=== PATIENT | male | born 1945 | race Caucasian/White ===

== ENCOUNTER 2016-12-05 10:43 | Emergency (ER) | payer OTHER ==
[~2016-12-05] VITALS: Ht 185.4 cm; Wt 160.0 kg
[~2016-12-05 10:43] MED LIST: AMLODIPINE BESYL5 MG PO; ASPIR 8181 M1 PO; ASPIR-LOW81 MG PO; ATORVASTATIN CA40 MG PO; BACIGUENT28.4 GM PO; BUPROPION XL150 MG PO; DILAUDID2 MG PO; DURAGESIC50 MCG TD; FENOFIBRATE145 M1 PO; FLOMAX0.4 MG PO; FLORASTOR250 MG PO; FUROSEMIDE20 MG PO; GLIPIZIDE XL10 MG PO; GLIPIZIDE5 MG PO; HYDROCHLOROTH12.5 M3 PO; LEVETIRACETAM500 MG PO; LEVOFLOXACIN500 MG PO; LOSARTAN POTAS100 MG PO; METOPROLOL SUC100 MG PO; NEXIUM40 MG PO; NORVASC5 MG PO; OXECTA5 MG PO; PAXIL40 MG PO; PRADAXA150 MG PO; PROAIR HFA8.5 GM IH; TAMSULOSIN HCL0.4 MG PO; TRAMADOL HCL50 MG PO; XANAX0.5 MG PO
[2016-12-05 11:45] LABS: HEMATOCRIT 45.9 % (38.0-50.0); MCH 30.7 PG (29.0-34.0); MCV 90.4 FL (86-99); MEAN PLAT.VOLUME 11.4 uM^3 (9.0-12.4); PLATELET COUNT 156 K/uL (156-360); RBC DIS.WIDTH-CV 14.2 % (11.8-14.6); RBC DIS.WIDTH-SD 46.2 % (39-53); RED BLOOD COUNT 5.08 M/uL (4.00-5.50); WHITE BLOOD COUNT 6.2 K/uL (4.1-10.2)
[2016-12-05 12:06] LABS: CHLORIDE 109 mEq/L (99-109); POTASSIUM 5.5 mEq/L (3.7-5.4); SODIUM 140 mEq/L (136-147)
[2016-12-05 12:08] LABS: GLUCOSE 77 mg/dL (70-99)
[2016-12-05 12:09] LABS: ANION GAP 11 MEQ/L (2-14)
[2016-12-05 12:11] LABS: GFR ESTIMATE (CALCULATED) > 59 mL/min/
[2016-12-05 12:12] LABS: UREA NITROGEN (BUN) 14 mg/dL (9-23)
[2016-12-05 13:56] LABS: ADD MIUA? NO; BILIRUBIN NEGATIVE; BLOOD NEGATIVE; COLOR YELLOW ((YELLOW)); GLUCOSE (STRIP) NEGATIVE; KETONES NEGATIVE; LEUKOCYTES NEGATIVE; NITRITE NEGATIVE; PH, URINE 5.5 (5-8); PROTEIN (STRIP) NEGATIVE; SPECIFIC GRAVITY 1.014 (1.000-1.030); UCUL ADDED? NO; UROBILINOGEN 0.2 MG/DL (0.2-1.0)
[2016-12-05 14:39] VITALS: BP 136/93
== END 2016-12-05 14:40 | disposition home or self-care (01) ==
LOC: EME → EDBD 10:43 → EME 14:40
PROVIDERS: Emergency Medicine
DX: R56.9 Unspecified convulsions (principal); I10 Essential (primary) hypertension; E11.9 Type 2 diabetes mellitus without complications; I69.351 Hemiplegia and hemiparesis following cerebral infarction affecting right dominant side; E78.5 Hyperlipidemia, unspecified; E66.9 Obesity, unspecified; Z68.42 Body mass index [BMI] 45.0-49.9, adult; Z79.82 Long term (current) use of aspirin; Z87.891 Personal history of nicotine dependence
CPT/HCPCS: 70450; 80048; 81003; 85027; 93005; J1953; J2250; J7050

== ENCOUNTER 2017-04-11 17:25 | Emergency (ER) | payer OTHER ==
[~2017-04-11] VITALS: Ht 190.5 cm; Wt 164.5 kg
[2017-04-11 18:39] LABS: EOSINOPHIL (%) 2.5 % (0-5); EOSINOPHIL COUNT 0.2 K/uL (0-0.3); HEMATOCRIT 46.9 % (38.0-50.0); IMMATURE GRANULOCYTE (%) 0.4 % (0.0-0.7); INSTRUMENT ABS NEUTROPHIL CT 4.2 K/uL; LYMPHOCYTE COUNT 1.6 K/uL (1.0-2.8); MCV 93.8 FL (86-99); MEAN PLAT.VOLUME 9.9 uM^3 (9.0-12.4); MONOCYTE (%) 10.6 % (3-12); MONOCYTE COUNT 0.7 K/uL (0-0.8); NEUTROPHIL (%) 62.9 % (45-76); NEUTROPHIL COUNT 4.2 K/uL (1.8-6.4); PLATELET COUNT 143 K/uL (156-360); RBC DIS.WIDTH-CV 14.4 % (11.8-14.6); WHITE BLOOD COUNT 6.7 K/uL (4.1-10.2)
[2017-04-11 18:52] LABS: CHLORIDE 105 mEq/L (99-109); POTASSIUM 4.4 mEq/L (3.7-5.4); SODIUM 134 mEq/L (136-147)
[2017-04-11 18:54] LABS: GLUCOSE 124 mg/dL (70-99)
[2017-04-11 18:55] LABS: ANION GAP 4 MEQ/L (2-14)
[2017-04-11 18:57] LABS: ALKALINE PHOSPHATASE 79 IU/L (3-129)
[2017-04-11 18:58] LABS: GFR ESTIMATE (CALCULATED) > 59 mL/min/
[2017-04-11 18:59] LABS: UREA NITROGEN (BUN) 16 mg/dL (9-23)
[2017-04-11 19:01] LABS: LIPASE 19 U/L (1.0-51.0)
[2017-04-11 19:14] LABS: ADD MIUA? NO; BILIRUBIN NEGATIVE; BLOOD NEGATIVE; COLOR YELLOW ((YELLOW)); GLUCOSE (STRIP) NEGATIVE; KETONES NEGATIVE; LEUKOCYTES NEGATIVE; NITRITE NEGATIVE; PROTEIN (STRIP) NEGATIVE; SPECIFIC GRAVITY 1.018 (1.000-1.030); UCUL ADDED? NO; UROBILINOGEN 0.2 MG/DL (0.2-1.0)
[2017-04-11 22:02] VITALS: BP 123/82
== END 2017-04-11 22:05 | disposition home or self-care (01) ==
LOC: EME 17:25
PROVIDERS: Emergency Medicine
DX: R33.9 Retention of urine, unspecified (principal); R10.30 Lower abdominal pain, unspecified; Z87.891 Personal history of nicotine dependence; Z86.73 Personal history of transient ischemic attack (TIA), and cerebral infarction without residual deficits; I10 Essential (primary) hypertension; Z79.82 Long term (current) use of aspirin; E11.9 Type 2 diabetes mellitus without complications; Z79.84 Long term (current) use of oral hypoglycemic drugs; E78.5 Hyperlipidemia, unspecified
CPT/HCPCS: 74177; 80053; 81003; 83690; 85025; 99281; 99285; J2270; J2405

== ENCOUNTER 2017-04-24 02:32 | Emergency (ER) | payer OTHER ==
[~2017-04-24] VITALS: Ht 190.5 cm; Wt 165.5 kg
[2017-04-24 03:10] LABS: ADD MIUA? YES; BILIRUBIN NEGATIVE; BLOOD LARGE; COLOR YELLOW ((YELLOW)); GLUCOSE (STRIP) NEGATIVE; KETONES NEGATIVE; LEUKOCYTES LARGE; NITRITE NEGATIVE; PROTEIN (STRIP) 30; SPECIFIC GRAVITY 1.014 (1.000-1.030)
[2017-04-24 03:20] LABS: BACTERIA 2+ /HPF; EPITHELIAL CELLS NONE SEEN /HPF; MUCUS TRACE /LPF; RED BLOOD CELLS TNTC /HPF (0-5); UCUL ADDED? YES; WHITE BLOOD CELLS TNTC /HPF (0-5)
[2017-04-24] MEDS ORDERED: KEFLEX500 MG PO (03:26)
[2017-04-24 04:03] VITALS: BP 118/77
== END 2017-04-24 04:05 | disposition home or self-care (01) ==
LOC: EME 02:32
PROVIDERS: Emergency Medicine
DX: N39.0 Urinary tract infection, site not specified (principal); R33.9 Retention of urine, unspecified; N40.0 Benign prostatic hyperplasia without lower urinary tract symptoms; E11.9 Type 2 diabetes mellitus without complications; I10 Essential (primary) hypertension; E78.5 Hyperlipidemia, unspecified; Z86.73 Personal history of transient ischemic attack (TIA), and cerebral infarction without residual deficits; Z87.891 Personal history of nicotine dependence; Z79.84 Long term (current) use of oral hypoglycemic drugs
CPT/HCPCS: 81003; 87086; 99281; 99284

== ENCOUNTER → 2017-05-19 | Outpatient (CLI) | payer MEDICARE, OTHER ==
[~2017-05-19] MED LIST changes: +KEFLEX500 MG PO
== END | disposition home or self-care (01) ==
LOC: CDC 10:37
DX: N40.1 Benign prostatic hyperplasia with lower urinary tract symptoms (principal); R33.8 Other retention of urine; R94.31 Abnormal electrocardiogram [ECG] [EKG]
CPT/HCPCS: 93000

== ENCOUNTER 2017-07-21 14:12 | Inpatient (IN) | payer OTHER ==
[~2017-07-21] VITALS: Ht 182.9 cm; Wt 125.0 kg
[2017-07-21 15:13] LABS: CHLORIDE 100 mEq/L (99-109); POTASSIUM 4.2 mEq/L (3.7-5.4); SODIUM 134 mEq/L (136-147)
[2017-07-21 15:15] LABS: GLUCOSE 125 mg/dL (70-99)
[2017-07-21 15:17] LABS: ANION GAP 13 MEQ/L (2-14); TOTAL BILIRUBIN 1.2 mg/dL (0.0-1.0)
[2017-07-21 15:19] LABS: ALKALINE PHOSPHATASE 83 IU/L (3-129); GFR ESTIMATE (CALCULATED) 46 mL/min/
[2017-07-21 15:20] LABS: UREA NITROGEN (BUN) 17 mg/dL (9-23)
[2017-07-21 15:28] LABS: TROP-I INTERPRETATION NEGATIVE; TROPONIN-I < 0.01 ng/mL (0.0-0.30)
[2017-07-21 17:00] LABS: EOSINOPHIL (%) 0.7 % (0-5); EOSINOPHIL COUNT 0.1 K/uL (0-0.3); HEMATOCRIT 42.5 % (38.0-50.0); IMMATURE GRANULOCYTE (%) 0.6 % (0.0-0.7); IMMATURE GRANULOCYTE COUNT 0.1 K/uL; INSTRUMENT ABS NEUTROPHIL CT 6.6 K/uL; LYMPHOCYTE COUNT 1.6 K/uL (1.0-2.8); MCH 30.5 PG (29.0-34.0); MCHC 32.5 G/DL (30.0-36.0); MCV 93.8 FL (86-99); MEAN PLAT.VOLUME 11.1 uM^3 (9.0-12.4); MONOCYTE (%) 12.4 % (3-12); MONOCYTE COUNT 1.2 K/uL (0-0.8); NEUTROPHIL (%) 69.3 % (45-76); NEUTROPHIL COUNT 6.6 K/uL (1.8-6.4); PLATELET COUNT 198 K/uL (156-360); RBC DIS.WIDTH-CV 13.9 % (11.8-14.6); RBC DIS.WIDTH-SD 47.9 % (39-53); RED BLOOD COUNT 4.53 M/uL (4.00-5.50); WHITE BLOOD COUNT 9.6 K/uL (4.1-10.2)
[2017-07-21 19:59] LABS: ADD MIUA? YES; BILIRUBIN NEGATIVE; BLOOD MODERATE; COLOR AMBER ((YELLOW)); GLUCOSE (STRIP) NEGATIVE; KETONES NEGATIVE; LEUKOCYTES MODERATE; NITRITE NEGATIVE; PROTEIN (STRIP) 30; SPECIFIC GRAVITY 1.024 (1.000-1.030)
[2017-07-21 20:06] LABS: BACTERIA NONE SEEN /HPF; EPITHELIAL CELLS RARE /HPF; GRANULAR CASTS 0-5 /LPF; HYALINE CASTS 0-5 /LPF; MUCUS TRACE /LPF; RED BLOOD CELLS 30-40 /HPF (0-5); UCUL ADDED? YES; WHITE BLOOD CELLS TNTC /HPF (0-5)
[2017-07-22 02:25] VITALS: BP 138/82
[2017-07-22 06:35] VITALS: BP 142/86
[2017-07-22 16:45] VITALS: BP 114/76
[2017-07-22 19:40] VITALS: BP 111/60
[2017-07-23] VITALS (7 sets, daily range): BP systolic 110–125; BP diastolic 63–81
[2017-07-23 08:45] LABS: EOSINOPHIL (%) 0.1 % (0-5); HEMATOCRIT 37.9 % (38.0-50.0); IMMATURE GRANULOCYTE (%) 0.8 % (0.0-0.7); IMMATURE GRANULOCYTE COUNT 0.1 K/uL; INSTRUMENT ABS NEUTROPHIL CT 7.6 K/uL; LYMPHOCYTE COUNT 1.1 K/uL (1.0-2.8); MCHC 31.7 G/DL (30.0-36.0); MCV 94.8 FL (86-99); MONOCYTE (%) 9.1 % (3-12); MONOCYTE COUNT 0.9 K/uL (0-0.8); NEUTROPHIL COUNT 7.6 K/uL (1.8-6.4); PLATELET COUNT 207 K/uL (156-360); RBC DIS.WIDTH-CV 13.6 % (11.8-14.6); RBC DIS.WIDTH-SD 47.8 % (39-53); WHITE BLOOD COUNT 9.7 K/uL (4.1-10.2)
[2017-07-23 09:04] LABS: ALKALINE PHOSPHATASE 64 IU/L (3-129); ANION GAP 10 MEQ/L (2-14); CHLORIDE 105 MEQ/L (99-109); GFR ESTIMATE (CALCULATED) 46 mL/min/; GLUCOSE 98 mg/dL (70-99); POTASSIUM 4.6 MEQ/L (3.7-5.4); SAMPLE HEMOLYSIS CHECK 0; SAMPLE ICTERIC CHECK 0; SAMPLE LIPEMIA CHECK 0; SODIUM 138 MEQ/L (136-147); TOTAL BILIRUBIN 0.5 MG/DL (0.0-1.0)
[2017-07-23 09:07] LABS: UREA NITROGEN (BUN) 34 mg/dL (9-23)
[2017-07-23] MEDS ORDERED: KEPPRA1000 MG PO (10:55)
[2017-07-23 16:55] LABS: POINT-OF-CARE METER ID UU13113725
[2017-07-24 04:56] VITALS: BP 123/77
[2017-07-24 05:55] LABS: POINT-OF-CARE METER ID UU13113725
[2017-07-24 07:04] LABS: EOSINOPHIL (%) 0.2 % (0-5); HEMATOCRIT 36.7 % (38.0-50.0); IMMATURE GRANULOCYTE (%) 0.6 % (0.0-0.7); IMMATURE GRANULOCYTE COUNT 0.1 K/uL; INSTRUMENT ABS NEUTROPHIL CT 6.6 K/uL; LYMPHOCYTE COUNT 1.2 K/uL (1.0-2.8); MCHC 31.9 G/DL (30.0-36.0); MCV 94.1 FL (86-99); MONOCYTE (%) 9.6 % (3-12); MONOCYTE COUNT 0.8 K/uL (0-0.8); NEUTROPHIL (%) 75.6 % (45-76); NEUTROPHIL COUNT 6.6 K/uL (1.8-6.4); PLATELET COUNT 233 K/uL (156-360); RBC DIS.WIDTH-CV 13.5 % (11.8-14.6); RBC DIS.WIDTH-SD 46.8 % (39-53); WHITE BLOOD COUNT 8.7 K/uL (4.1-10.2)
[2017-07-24 07:30] LABS: ALKALINE PHOSPHATASE 63 IU/L (3-129); ANION GAP 7 MEQ/L (2-14); CHLORIDE 105 MEQ/L (99-109); GFR ESTIMATE (CALCULATED) 53 mL/min/; GLUCOSE 103 mg/dL (70-99); POTASSIUM 4.7 MEQ/L (3.7-5.4); SAMPLE HEMOLYSIS CHECK 0; SAMPLE ICTERIC CHECK 0; SAMPLE LIPEMIA CHECK 0; SODIUM 138 MEQ/L (136-147); UREA NITROGEN (BUN) 41 mg/dL (9-23)
[2017-07-24 07:31] LABS: TOTAL BILIRUBIN 0.3 MG/DL (0.0-1.0)
[2017-07-24 08:40] VITALS: BP 145/104
[2017-07-24 12:32] VITALS: BP 135/90
[2017-07-24 15:00] VITALS: BP 140/91
[2017-07-24] MEDS ORDERED: PREDNISONE20 MG PO (18:02)
[2017-07-24 20:42] VITALS: BP 124/86
[2017-07-25 01:00] VITALS: BP 132/76
[2017-07-25] MEDS ORDERED: KEFLEX500 MG PO (06:43)
[2017-07-25 06:45] LABS: POINT-OF-CARE METER ID UU13113725
[2017-07-25 06:57] LABS: EOSINOPHIL (%) 0.3 % (0-5); HEMATOCRIT 36.2 % (38.0-50.0); IMMATURE GRANULOCYTE (%) 0.7 % (0.0-0.7); IMMATURE GRANULOCYTE COUNT 0.1 K/uL; INSTRUMENT ABS NEUTROPHIL CT 4.5 K/uL; LYMPHOCYTE COUNT 1.6 K/uL (1.0-2.8); MCH 30.1 PG (29.0-34.0); MONOCYTE (%) 10.7 % (3-12); MONOCYTE COUNT 0.7 K/uL (0-0.8); NEUTROPHIL COUNT 4.5 K/uL (1.8-6.4); PLATELET COUNT 266 K/uL (156-360); RBC DIS.WIDTH-CV 13.6 % (11.8-14.6); RBC DIS.WIDTH-SD 47.1 % (39-53); RED BLOOD COUNT 3.85 M/uL (4.00-5.50); WHITE BLOOD COUNT 6.9 K/uL (4.1-10.2)
[2017-07-25 07:20] VITALS: BP 119/71
[2017-07-25 07:24] LABS: ALKALINE PHOSPHATASE 63 IU/L (3-129); ANION GAP 6 MEQ/L (2-14); CHLORIDE 106 MEQ/L (99-109); GFR ESTIMATE (CALCULATED) > 59 mL/min/; GLUCOSE 84 mg/dL (70-99); POTASSIUM 4.5 MEQ/L (3.7-5.4); SAMPLE HEMOLYSIS CHECK 0; SAMPLE ICTERIC CHECK 0; SAMPLE LIPEMIA CHECK 0; SODIUM 140 MEQ/L (136-147); TOTAL BILIRUBIN 0.3 MG/DL (0.0-1.0); UREA NITROGEN (BUN) 37 mg/dL (9-23)
[2017-07-25 11:00] VITALS: BP 121/73
[2017-07-25 11:56] LABS: POINT-OF-CARE METER ID UU13113725
== END 2017-07-25 13:40 | disposition home health service (06) | DRG 554 ==
LOC: EME 14:12 → 5EAST 07-22 00:26 → EDOF 07-22 00:26 → ENRESERV 07-22 00:29 → 5EAST 07-22 01:27 → ENPENDDIS 07-25 → 5EAST 07-25 13:40
PROVIDERS: Emergency Medicine; Hospitalist; Internal Medicine
DX: M10.9 Gout, unspecified (principal); N39.0 Urinary tract infection, site not specified; I48.2 Chronic atrial fibrillation; E66.01 Morbid (severe) obesity due to excess calories; I69.331 Monoplegia of upper limb following cerebral infarction affecting right dominant side; I10 Essential (primary) hypertension; E11.9 Type 2 diabetes mellitus without complications; E78.5 Hyperlipidemia, unspecified; I25.10 Atherosclerotic heart disease of native coronary artery without angina pectoris; G40.909 Epilepsy, unspecified, not intractable, without status epilepticus; I07.1 Rheumatic tricuspid insufficiency; N40.0 Benign prostatic hyperplasia without lower urinary tract symptoms; Z79.01 Long term (current) use of anticoagulants; Z87.891 Personal history of nicotine dependence
CPT/HCPCS: 71010; 73630; 80048; 80053; 81003; 82948; 83605; 84484; 85025; 87040; 87086; 87493; 93005; 93971; 94799; 99281; 99285; J0690; J0696; J1815; J2543; J3370; J7050; J7120; J7512

== ENCOUNTER 2017-08-02 21:31 | Inpatient (IN) | payer OTHER ==
[~2017-08-02] VITALS: Ht 190.5 cm; Wt 135.0 kg
[~2017-08-02 21:31] MED LIST changes: +KEPPRA1000 MG PO; +PREDNISONE20 MG PO
[2017-08-02 22:10] LABS: EOSINOPHIL (%) 0.2 % (0-5); HEMATOCRIT 47.8 % (38.0-50.0); IMMATURE GRANULOCYTE (%) 1.2 % (0.0-0.7); IMMATURE GRANULOCYTE COUNT 0.1 K/uL; INSTRUMENT ABS NEUTROPHIL CT 6.2 K/uL; LYMPHOCYTE COUNT 1.3 K/uL (1.0-2.8); MCH 29.7 PG (29.0-34.0); MCHC 31.2 G/DL (30.0-36.0); MCV 95.4 FL (86-99); MEAN PLAT.VOLUME 10.2 uM^3 (9.0-12.4); MONOCYTE (%) 5.4 % (3-12); MONOCYTE COUNT 0.4 K/uL (0-0.8); NEUTROPHIL (%) 77.1 % (45-76); NEUTROPHIL COUNT 6.2 K/uL (1.8-6.4); PLATELET COUNT 243 K/uL (156-360); RBC DIS.WIDTH-CV 14.8 % (11.8-14.6); RBC DIS.WIDTH-SD 50.6 % (39-53); WHITE BLOOD COUNT 8.1 K/uL (4.1-10.2)
[2017-08-02 22:11] LABS: RED BLOOD COUNT 5.01 M/uL (4.00-5.50)
[2017-08-02 22:14] LABS: INTER. NORMALIZED RATIO 1.2; PROTHROMBIN TIME 12.7 SEC (10.2-12.9)
[2017-08-02 22:17] LABS: PTT 37.1 SEC (25-37)
[2017-08-02 22:20] LABS: CHLORIDE 100 mEq/L (99-109); POTASSIUM 4.3 mEq/L (3.7-5.4); SODIUM 137 mEq/L (136-147)
[2017-08-02 22:22] LABS: GLUCOSE 147 mg/dL (70-99)
[2017-08-02 22:23] LABS: ANION GAP 13 MEQ/L (2-14)
[2017-08-02 22:24] LABS: TOTAL BILIRUBIN 0.4 mg/dL (0.0-1.0)
[2017-08-02 22:25] LABS: ALKALINE PHOSPHATASE 104 IU/L (3-129)
[2017-08-02 22:26] LABS: GFR ESTIMATE (CALCULATED) > 59 mL/min/
[2017-08-02 22:27] LABS: UREA NITROGEN (BUN) 15 mg/dL (9-23)
[2017-08-02] MEDS ORDERED: CEPHALEXIN500 MG PO (23:19)
[2017-08-02] MEDS ORDERED: GLIPIZIDE5 MG PO (23:21)
[2017-08-02] MEDS ORDERED: DEPAKOTE ER500 MG PO (23:21)
[2017-08-02] MEDS ORDERED: DELTASONE20 M1 PO (23:21)
[2017-08-03 00:48] LABS: POINT-OF-CARE METER ID UU13113747
[2017-08-03 04:31] LABS: POINT-OF-CARE METER ID UU13113747
[2017-08-03 05:09] VITALS: BP 165/97
[2017-08-03 05:11] VITALS: BP 141/65
[2017-08-03 06:57] LABS: HEMATOCRIT 41.6 % (38.0-50.0); MCHC 32.5 G/DL (30.0-36.0); MCV 95.4 FL (86-99); MEAN PLAT.VOLUME 10.1 uM^3 (9.0-12.4); PLATELET COUNT 233 K/uL (156-360); RBC DIS.WIDTH-CV 14.6 % (11.8-14.6); RBC DIS.WIDTH-SD 50.5 % (39-53); RED BLOOD COUNT 4.36 M/uL (4.00-5.50); WHITE BLOOD COUNT 9.7 K/uL (4.1-10.2)
[2017-08-03 07:22] LABS: ANION GAP 9 MEQ/L (2-14); CHLORIDE 102 MEQ/L (99-109); GFR ESTIMATE (CALCULATED) > 59 mL/min/; POTASSIUM 4.8 MEQ/L (3.7-5.4); SAMPLE HEMOLYSIS CHECK 2; SAMPLE ICTERIC CHECK 0; SAMPLE LIPEMIA CHECK 0; SODIUM 137 MEQ/L (136-147); UREA NITROGEN (BUN) 13 mg/dL (9-23)
[2017-08-03 07:30] LABS: GLUCOSE 95 mg/dL (70-99)
[2017-08-03 07:59] VITALS: BP 152/87
[2017-08-03 09:54] LABS: Estimated Average Glucose 126 mg/dL (70-123)
[2017-08-03 12:01] LABS: ADD MIUA? YES; BILIRUBIN NEGATIVE; BLOOD SMALL; COLOR YELLOW ((YELLOW)); GLUCOSE (STRIP) NEGATIVE; KETONES NEGATIVE; LEUKOCYTES SMALL; NITRITE NEGATIVE; PROTEIN (STRIP) NEGATIVE; SPECIFIC GRAVITY 1.006 (1.000-1.030); UROBILINOGEN 0.2 MG/DL (0.2-1.0)
[2017-08-03 12:05] LABS: BACTERIA RARE /HPF; EPITHELIAL CELLS RARE /HPF; MUCUS TRACE /LPF; RED BLOOD CELLS 0-5 /HPF (0-5); WHITE BLOOD CELLS 20-30 /HPF (0-5)
[2017-08-03 15:09] LABS: POINT-OF-CARE METER ID UU14188577
[2017-08-03 15:29] VITALS: BP 148/75
[2017-08-03 16:19] LABS: POINT-OF-CARE METER ID UU14188577
[2017-08-03 19:49] VITALS: BP 138/72
[2017-08-03 21:46] LABS: POINT-OF-CARE METER ID UU14208753
[2017-08-03 23:47] VITALS: BP 142/68
[2017-08-04 00:43] LABS: POINT-OF-CARE METER ID UU14117124
[2017-08-04 04:07] VITALS: BP 152/57
[2017-08-04 05:46] LABS: POINT-OF-CARE METER ID UU14208753
[2017-08-04 06:53] LABS: HEMATOCRIT 41.1 % (38.0-50.0); MCH 31.1 PG (29.0-34.0); MCHC 32.1 G/DL (30.0-36.0); MCV 96.7 FL (86-99); MEAN PLAT.VOLUME 10.5 uM^3 (9.0-12.4); PLATELET COUNT 210 K/uL (156-360); RBC DIS.WIDTH-CV 14.9 % (11.8-14.6); RBC DIS.WIDTH-SD 51.4 % (39-53); RED BLOOD COUNT 4.25 M/uL (4.00-5.50); WHITE BLOOD COUNT 9.6 K/uL (4.1-10.2)
[2017-08-04 07:25] LABS: ANION GAP 7 MEQ/L (2-14); CHLORIDE 103 MEQ/L (99-109); GFR ESTIMATE (CALCULATED) > 59 mL/min/; GLUCOSE 98 mg/dL (70-99); POTASSIUM 4.7 MEQ/L (3.7-5.4); SAMPLE HEMOLYSIS CHECK 0; SAMPLE ICTERIC CHECK 0; SAMPLE LIPEMIA CHECK 0; SODIUM 140 MEQ/L (136-147); UREA NITROGEN (BUN) 13 mg/dL (9-23)
[2017-08-04 08:15] VITALS: BP 132/84
[2017-08-04 12:03] VITALS: BP 126/68
[2017-08-04 12:20] LABS: POINT-OF-CARE METER ID UU14188577
== END 2017-08-04 14:32 | disposition home health service (06) | DRG 101 ==
LOC: EME 21:31 → EDOF 08-03 02:44 → 3EAST 08-03 02:44 → ENRESERV 08-03 02:48 → 3EAST 08-03 04:31
PROVIDERS: Emergency Medicine; Hospitalist; Internal Medicine
DX: G40.901 Epilepsy, unspecified, not intractable, with status epilepticus (principal); T42.6X6A Underdosing of other antiepileptic and sedative-hypnotic drugs, initial encounter; E11.9 Type 2 diabetes mellitus without complications; I25.10 Atherosclerotic heart disease of native coronary artery without angina pectoris; I48.2 Chronic atrial fibrillation; I27.20 Pulmonary hypertension, unspecified; E78.5 Hyperlipidemia, unspecified; F32.9 Major depressive disorder, single episode, unspecified; F17.290 Nicotine dependence, other tobacco product, uncomplicated; I08.2 Rheumatic disorders of both aortic and tricuspid valves; I10 Essential (primary) hypertension; K21.9 Gastro-esophageal reflux disease without esophagitis; N40.0 Benign prostatic hyperplasia without lower urinary tract symptoms; E66.01 Morbid (severe) obesity due to excess calories; Z98.1 Arthrodesis status; Z91.14 Patient's other noncompliance with medication regimen; I69.331 Monoplegia of upper limb following cerebral infarction affecting right dominant side; Z79.01 Long term (current) use of anticoagulants; Z79.82 Long term (current) use of aspirin; Z68.37 Body mass index [BMI] 37.0-37.9, adult
CPT/HCPCS: 70450; 71010; 80048; 80053; 80164; 81003; 82948; 83036; 85025; 85027; 85610; 85730; 93005; 94760; 94799; 99281; 99285; J1650; J1815; J1953; J2060; J2250; J2405; J7030; J7042; J7050; J7512

== ENCOUNTER 2017-11-14 02:09 | Inpatient (IN) | payer OTHER ==
[~2017-11-14] VITALS: Ht 190.5 cm; Wt 149.3 kg
[~2017-11-14 02:09] MED LIST changes: +CEPHALEXIN500 MG PO; +DELTASONE20 M1 PO; +DEPAKOTE ER500 MG PO; -KEPPRA1000 MG PO; +KEPPRA750 MG PO
[2017-11-14 02:37] LABS: HEMOGLOBIN 15.7 G/DL (12.5-16.6); MCH 30.7 PG (29.0-34.0); MCV 95.9 FL (86-99); PLATELET COUNT 211 K/uL (156-360); RBC DIS.WIDTH-CV 16.2 % (11.8-14.6); RBC DIS.WIDTH-SD 56.1 % (39-53); RED BLOOD COUNT 5.11 M/uL (4.00-5.50); WHITE BLOOD COUNT 11.1 K/uL (4.1-10.2)
[2017-11-14 02:50] LABS: ALBUMIN 4.1 g/dL (3.2-4.8); CHLORIDE 104 mEq/L (99-109); POTASSIUM 4.4 mEq/L (3.7-5.4); SODIUM 139 mEq/L (136-147)
[2017-11-14 02:51] LABS: MAGNESIUM 1.6 mg/dL (1.3-2.7)
[2017-11-14 02:53] LABS: GLUCOSE 89 mg/dL (70-99); TOTAL PROTEIN 8.7 g/dL (6.4-8.3)
[2017-11-14 02:54] LABS: TOTAL BILIRUBIN 0.4 mg/dL (0.0-1.0)
[2017-11-14 02:56] LABS: ALKALINE PHOSPHATASE 116 IU/L (3-129); CREATININE 1.3 mg/dL (0.6-1.3); GFR ESTIMATE (CALCULATED) 58 mL/min/ (58.99-99999); PHOSPHORUS 3.9 mg/dL (2.5-4.9)
[2017-11-14 02:57] LABS: UREA NITROGEN (BUN) 24 mg/dL (9-23)
[2017-11-14 02:58] LABS: AST (GOT) 21 IU/L (2-34)
[2017-11-14 02:59] LABS: ALT (GPT) 15 IU/L (3-49); TROP-I INTERPRETATION NEGATIVE; TROPONIN-I < 0.01 ng/mL (0.0-0.30)
[2017-11-14 03:00] LABS: CREATINE KINASE 45 IU/L (1-294); LIPASE 82 U/L (1.0-51.0); TOTAL CK 45 IU/L (1-294)
[2017-11-14 03:07] LABS: CK-MB 1.3 ng/mL (0.0-4.9); CKMB RELATIVE INDEX 2.9 (0.0-3.9)
[2017-11-14] MEDS ORDERED: ULORIC40 MG PO (12:20)
[2017-11-14] MEDS ORDERED: MELOXICAM7.5 MG PO (12:21)
[2017-11-14 20:38] VITALS: BP 141/101
[2017-11-15 06:07] LABS: HEMATOCRIT 44.3 % (38.0-50.0); HEMOGLOBIN 13.9 G/DL (12.5-16.6); MCH 29.4 PG (29.0-34.0); MCHC 31.4 G/DL (30.0-36.0); MCV 93.7 FL (86-99); PLATELET COUNT 175 K/uL (156-360); RBC DIS.WIDTH-CV 15.9 % (11.8-14.6); RBC DIS.WIDTH-SD 54.4 % (39-53); RED BLOOD COUNT 4.73 M/uL (4.00-5.50); WHITE BLOOD COUNT 7.6 K/uL (4.1-10.2)
[2017-11-15 06:31] LABS: ALBUMIN 3.5 G/DL (3.2-4.8); ALKALINE PHOSPHATASE 78 IU/L (3-129); ALT (GPT) 10 IU/L (3-49); AST (GOT) 16 IU/L (2-34); CHLORIDE 103 MEQ/L (99-109); GFR ESTIMATE (CALCULATED) > 59 mL/min/ (58.99-99999); GLUCOSE 98 mg/dL (70-99); POTASSIUM 4.6 MEQ/L (3.7-5.4); SODIUM 137 MEQ/L (136-147); TOTAL BILIRUBIN 0.7 MG/DL (0.0-1.0); TOTAL PROTEIN 6.9 G/DL (6.4-8.3); UREA NITROGEN (BUN) 17 mg/dL (9-23)
[2017-11-15 08:16] VITALS: BP 161/90
[2017-11-15 15:38] VITALS: BP 119/80
[2017-11-15 19:15] VITALS: BP 121/82
[2017-11-15 23:45] VITALS: BP 198/67
[2017-11-16 04:04] VITALS: BP 138/68
[2017-11-16 05:22] LABS: BASOPHIL (%) 0.5 % (0-1); EOSINOPHIL (%) 4.3 % (0-5); EOSINOPHIL COUNT 0.4 K/uL (0-0.3); HEMATOCRIT 48.6 % (38.0-50.0); HEMOGLOBIN 14.9 G/DL (12.5-16.6); IMMATURE GRANULOCYTE (%) 0.2 % (0.0-0.7); LYMPHOCYTE (%) 28.5 % (15-42); LYMPHOCYTE COUNT 2.5 K/uL (1.0-2.8); MCH 29.9 PG (29.0-34.0); MCHC 30.7 G/DL (30.0-36.0); MCV 97.4 FL (86-99); MONOCYTE (%) 7.8 % (3-12); MONOCYTE COUNT 0.7 K/uL (0-0.8); NEUTROPHIL (%) 58.7 % (45-76); NEUTROPHIL COUNT 5.1 K/uL (1.8-6.4); PLATELET COUNT 148 K/uL (156-360); RBC DIS.WIDTH-CV 15.9 % (11.8-14.6); RBC DIS.WIDTH-SD 57.3 % (39-53); RED BLOOD COUNT 4.99 M/uL (4.00-5.50); WHITE BLOOD COUNT 8.7 K/uL (4.1-10.2)
[2017-11-16 07:31] LABS: CHLORIDE 104 MEQ/L (99-109); GFR ESTIMATE (CALCULATED) > 59 mL/min/ (58.99-99999); GLUCOSE 95 mg/dL (70-99); POTASSIUM 4.6 MEQ/L (3.7-5.4); SODIUM 139 MEQ/L (136-147); UREA NITROGEN (BUN) 23 mg/dL (9-23)
[2017-11-16 07:37] VITALS: BP 100/76
[2017-11-16 11:47] VITALS: BP 140/86
[2017-11-16] MEDS ORDERED: DEPAKOTE ER500 MG PO (13:07)
[2017-11-16] MEDS ORDERED: VIMPAT50 MG PO ×2 (13:08→13:13)
== END 2017-11-16 15:39 | disposition home or self-care (01) | DRG 100 ==
LOC: EME 02:09 → EDOF 07:24 → ENRESERV 07:26 → 5EAST 20:15
PROVIDERS: Emergency Medicine; Internal Medicine; Student in an Organized Health Care Education/Training Program
DX: G40.901 Epilepsy, unspecified, not intractable, with status epilepticus (principal); J96.01 Acute respiratory failure with hypoxia; E87.2 Acidosis; I48.2 Chronic atrial fibrillation; I10 Essential (primary) hypertension; I69.331 Monoplegia of upper limb following cerebral infarction affecting right dominant side; E78.00 Pure hypercholesterolemia, unspecified; E11.9 Type 2 diabetes mellitus without complications; I08.2 Rheumatic disorders of both aortic and tricuspid valves; I25.10 Atherosclerotic heart disease of native coronary artery without angina pectoris; I27.20 Pulmonary hypertension, unspecified; I45.2 Bifascicular block; E66.9 Obesity, unspecified; Z68.41 Body mass index [BMI] 40.0-44.9, adult; G93.89 Other specified disorders of brain; K21.9 Gastro-esophageal reflux disease without esophagitis; F32.9 Major depressive disorder, single episode, unspecified; Z91.14 Patient's other noncompliance with medication regimen; F17.290 Nicotine dependence, other tobacco product, uncomplicated; Z79.01 Long term (current) use of anticoagulants; Z79.82 Long term (current) use of aspirin; Z79.84 Long term (current) use of oral hypoglycemic drugs; Z79.899 Other long term (current) drug therapy; Z87.442 Personal history of urinary calculi; Z98.1 Arthrodesis status
CPT/HCPCS: 70450; 71045; 80048; 80053; 80164; 82550; 82553; 82948; 83605; 83690; 83735; 84100; 84484; 85025; 85027; 93005; 94799; 99281; 99285; J1953; J2060; J7030; J7050